=== PATIENT | female | born 1955 | race Caucasian/White ===

== ENCOUNTER 2018-05-16 01:15 | Emergency (ER) | payer MEDICAID ==
[~2018-05-16] VITALS: Ht 160 cm; Wt 50.0 kg
[~2018-05-16 01:15] MED LIST: CLON1TAB; LEVO50TA; METO50TA95; SULF1TAB48 PO
[2018-05-16] MEDS ORDERED: ASPIRIN 81MG TABLET PO ONE (02:45)
[2018-05-16 03:00] LABS: CLARITY URINE CLEAR (CLEAR); COLOR URINE YELLOW (YELLOW); KETONES URINE NEGATIVE (NEGATIVE); LEUKOCYTE ESTERASE URINE TRACE (NEGATIVE); NITRITE URINE NEGATIVE (NEGATIVE); OCCULT BLOOD URINE TRACE (NEGATIVE); PROTEIN URINE NEGATIVE (NEGATIVE); SPECIFIC GRAVITY URINE 1.012 (1.005-1.030); UROBILINOGEN URINE 0.2 E.U./dL (0.2-1.0)
[2018-05-16 03:12] LABS: BASOPHILS % 0.7 % (0.0-2.0); EOSINOPHILS % 1.1 % (0.0-5.0); HEMOGLOBIN. 15.2 g/dL (12.0-16.0); LYMPHOCYTES % 16.2 % (20.0-50.0); MEAN CORPUSCULAR HEMOGLOBIN 29.2 pg (28.0-32.0); MEAN CORPUSCULAR VOLUME 84.4 fL (81.0-99.0); MEAN PLATELET VOLUME 8.8 fl (7.4-10.4); MONOCYTES % 5.7 % (2.0-8.0); NEUTROPHILS % 76.3 % (40.0-76.0); PLATELET 174 x1000/uL (130-400); RED BLOOD CELL COUNT 5.21 mill/uL (4.2-5.4); RED CELL DISTRIBUTION WIDTH 13.1 % (11.6-14.6)
[2018-05-16 03:13] LABS: CHLORIDE 106 mEq/L (98-107)
[2018-05-16 03:23] LABS: PROTHROMBIN TIME 10.5 sec (9.4-11.6)
[2018-05-16 06:08] VITALS: BP 122/67
== END 2018-05-16 06:10 | disposition home or self-care (01) ==
LOC: ER 01:15 → CANBEDREQ 06:27
DX: E05.90 Thyrotoxicosis, unspecified without thyrotoxic crisis or storm (principal); R07.89 Other chest pain; I10 Essential (primary) hypertension; F41.9 Anxiety disorder, unspecified; R06.02 Shortness of breath; Z88.0 Allergy status to penicillin; Z88.5 Allergy status to narcotic agent
CPT/HCPCS: 36415; 71045; 80053; 81003; 83880; 84443; 84484; 85025; 85610; 93005; 99285

== ENCOUNTER 2019-08-07 21:50 | Emergency (ER) | payer SELFPAY ==
[~2019-08-07] VITALS: Ht 152.4 cm; Wt 51.0 kg
[~2019-08-07 21:50] MED LIST changes: +ASPI-1393 MT; -CLON1TAB; +CLON1TAB12 MT; -LEVO50TA; +LEVO75TA7 MT; +NITR-87 MT; +PHEN-909 MT; -SULF1TAB48 PO
[2019-08-07 23:47] VITALS: BP 122/65
== END 2019-08-08 01:04 | disposition left against medical advice (07) ==
LOC: ER 21:50
DX: Z53.21 Procedure and treatment not carried out due to patient leaving prior to being seen by health care provider (principal)

== ENCOUNTER 2019-11-20 07:12 | Emergency (ER) | payer MEDICAID ==
[~2019-11-20] VITALS: Ht 152.4 cm; Wt 49.0 kg
[~2019-11-20 07:12] MED LIST changes: -ASPI-1393 MT; +ASPI-1497 MT
[2019-11-20] MEDS ORDERED: ACETAMINOPHEN 325MG TABLET PO STA (09:08)
[2019-11-20] MEDS ORDERED: SODIUM CHLORIDE 0.9% 1,000 ML IV ONE (09:08)
[2019-11-20] MEDS ORDERED: KETOROLAC 30MG/ML VIAL IV STA (09:08)
[2019-11-20 09:22] LABS: BASOPHILS % 0.6 % (0.0-2.0); EOSINOPHILS % 0.3 % (0.0-5.0); HEMATOCRIT. 42.8 % (36.0-48.0); HEMOGLOBIN. 14.7 g/dL (12.0-16.0); LYMPHOCYTES % 9.9 % (20.0-50.0); MEAN CORPUSCULAR VOLUME 87.4 fL (81.0-99.0); MEAN PLATELET VOLUME 9.3 fl (7.4-10.4); MONOCYTES % 9.6 % (2.0-8.0); NEUTROPHILS % 79.6 % (40.0-76.0); PLATELET 132 x1000/uL (130-400); RED BLOOD CELL COUNT 4.89 mill/uL (4.2-5.4); RED CELL DISTRIBUTION WIDTH 13.4 % (11.6-14.6)
[2019-11-20 09:27] LABS: CHLORIDE 109 mEq/L (98-107)
[2019-11-20 09:28] LABS: INR 1.2; PROTHROMBIN TIME 11.8 sec (9.6-11.0)
[2019-11-20 11:13] LABS: CLARITY URINE CLEAR (CLEAR); COLOR URINE YELLOW (YELLOW); KETONES URINE TRACE (NEGATIVE); LEUKOCYTE ESTERASE URINE NEGATIVE (NEGATIVE); NITRITE URINE NEGATIVE (NEGATIVE); OCCULT BLOOD URINE TRACE (NEGATIVE); PH URINE 6.5 (4.5-8.0); PROTEIN URINE NEGATIVE (NEGATIVE); SPECIFIC GRAVITY URINE 1.008 (1.005-1.030); UROBILINOGEN URINE 0.2 E.U./dL (0.2-1.0)
[2019-11-20 13:15] VITALS: BP 120/60
== END 2019-11-20 13:15 | disposition home or self-care (01) ==
LOC: ER 07:21
DX: B34.9 Viral infection, unspecified (principal); M79.18 Myalgia, other site; I10 Essential (primary) hypertension; Z87.440 Personal history of urinary (tract) infections; E03.9 Hypothyroidism, unspecified; Z79.82 Long term (current) use of aspirin; Z79.899 Other long term (current) drug therapy; Z88.0 Allergy status to penicillin; Z88.6 Allergy status to analgesic agent
CPT/HCPCS: 36415; 71045; 80053; 81003; 83690; 85025; 85610; 87804; 93005; 96374; 99284; J1885; J7030; Z7610

== ENCOUNTER 2022-01-28 17:19 | Emergency (ER) | payer MEDICAID ==
[~2022-01-28] VITALS: Ht 152.4 cm; Wt 60.0 kg
[2022-01-28 17:22] VITALS: BP 136/70
[2022-01-28] MEDS ORDERED: ASPIRIN 81MG TABLET PO ONE (17:30)
== END 2022-01-28 21:00 | disposition left against medical advice (07) ==
LOC: ER 17:19
DX: Z53.21 Procedure and treatment not carried out due to patient leaving prior to being seen by health care provider (principal); I11.9 Hypertensive heart disease without heart failure; E03.9 Hypothyroidism, unspecified; Z87.440 Personal history of urinary (tract) infections
CPT/HCPCS: 71045; 93005; 99283